=== PATIENT | male | born 1935 | race Caucasian/White ===

== ENCOUNTER → 2017-06-28 | Outpatient (CLI) | payer MEDICARE ==
--- NOTE | ~2017-06-28 | SLPPOC ---
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 Please see [employer] for details. Initial Level Goals Functional Limitation Reporting Swallowing G8996 - Swallowing functional limitation, current status at therapy episode outset and at reporting intervals Current Status: CK - At least 40 percent but less than 60 percent impaired, limited or restricted G8997 - Swallowing functional limitation, projected goal status, at therapy episode outset, at reporting intervals, and at discharge or to end reporting Goal Status: CK - At least 40 percent but less than 60 percent impaired, limited or restricted G8998 - Swallowing functional limitation, discharge status, at discharge from therapy or to end reporting Discharge Status: CK - At least 40 percent but less than 60 percent impaired, limited or restricted 06/28/2017 11:20:04 AM CICI MORIN Date/Time GAYLE Arora-GRAIN ELEVATOR AGENT Date I certify the need for these services furnished under this plan of treatment while under my care. State License #: [id number] CM:SLPPOC 1121 1121 [facility]
--- NOTE | ~2017-06-28 | SLPPN ---
[place], [place] BUSINESS PERFORMANCE ANALYST PROGRESS NOTE NAME: ERIC HOWARD UNIT #: [id number] ROOM: DOCTOR: CICI MORIN Speech Language Pathology Treatment Note Page 1 1 of Patient Name: ERIC HOWARD Date: 06/28/2017 11:20 AM : 1935 SOC Date: 06/28/2017 Provider: [facility] Provider #: [id number] Treating Clinician: GAYLE Arora-BUSINESS PERFORMANCE ANALYST Referring Physician: CICI MORIN Onset Date Description Code Primary Diagnosis: 06/20/2017 G25.9 Extrapyramidal and movement disorder, unspecified Time In: 10:00 AM Time Out: 11:00 AM BUSINESS PERFORMANCE ANALYST Interventions and CPT Codes Consisted of: CPT Code Modifiers Minutes Units MOTION FLUOROSCOPY/SWALLOW 15008 60 1 Total Minutes: 60 Total Timed Minutes: 0 Total Untimed Minutes: 60 Total Units: 1 Total Timed Units: 0 Total Untimed Units: 1 06/28/2017 11:21:03 AM GAYLE Arora-BUSINESS PERFORMANCE ANALYST Date/Time State License #: [id number] CM:SHAYY 1121 1121 [facility]
--- NOTE | ~2017-06-28 | SLPIE ---
[place], [place] DISTRIBUTION SUPERINTENDENT INITIAL EVALUATION NAME: ERIC HOWARD UNIT #: [id number] ROOM: DOCTOR: CICI MORIN Speech Language Pathology Initial Evaluation Page 1 1 of Patient Name: ERIC HOWARD Date: 06/28/2017 11:18 AM : 1935 SOC Date: 06/28/2017 Provider: [facility] Provider #: [id number] Treating Clinician: GAYLE Arora-DISTRIBUTION SUPERINTENDENT Referring Physician: CICI MORIN Patient Information Address: [address] [place] [address] Physician: CICI MORIN Physician #: City, [facility], Zip: [place], [place] [address] Occupation: Unknown # of Approved Visits: 0 Gender: Male Crematory Operator: ANA HOWARD Medicare #: [id number] Rehabilitation Information / History Onset Date Code Description Primary Diagnosis: 06/20/2017 G25.9 Extrapyramidal and movement disorder, unspecified Subjective Comments: Initial evaluation created to initiate the electronic medical record. Please see [employer] for details. Rehabilitation Information / History Clinical Findings Functional Goals Functional Limitation Reporting Swallowing G8996 - Swallowing functional limitation, current status at therapy episode outset and at reporting intervals Current Status: CK - At least 40 percent but less than 60 percent impaired, limited or restricted G8997 - Swallowing functional limitation, projected goal status, at therapy episode outset, at reporting intervals, and at discharge or to end reporting Goal Status: CK - At least 40 percent but less than 60 percent impaired, limited or restricted G8998 - Swallowing functional limitation, discharge status, at discharge from therapy or to end reporting Discharge Status: CK - At least 40 percent but less than 60 percent impaired, limited or restricted 06/28/2017 11:20:04 AM GAYLE Arora-DISTRIBUTION SUPERINTENDENT Date/Time [place], [place] DISTRIBUTION SUPERINTENDENT INITIAL EVALUATION NAME: ERIC HOWARD UNIT #: [id number] ROOM: DOCTOR: CICI MORIN [facility] License #: [id number] CM:CANDIE 20 112 [facility]
--- NOTE | ~2017-06-28 | PROC NOTE ---
[place], [place] PROCEDURE NOTE NAME: ERIC HOWARD UNIT #: [id number] ROOM: DOCTOR: SLY BELLAMY BIRTHDATE: [birth year] DOS: 06/28/2017 ORDERING PHYSICIAN: ____. RADIOLOGIST: Dr. Fermin. BACKGROUND INFORMATION: The patient is an 81-year-old male who was seen for modified barium swallow. This test was ordered to rule out aspiration. The patient underwent a recent clinical swallowing evaluation and presented with signs and symptoms of aspiration; therefore, instrumental exam was recommended. The patient is diagnosed with Parkinson's disease. He reported that he coughs and chokes with food and liquids. For today's assessment, he was alert and able to follow directions. He was receiving oxygen via nasal cannula and reported feeling mildly short of breath at this time. The patient reports that he consumes a regular diet and thin liquid at home. Oral peripheral examination revealed presence of upper denture with adequate fit reported. Lingual, labial, and buccal skills were within normal limits in terms of strength, range of motion, and coordination. The patient was able to volitionally swallow. His volitional cough was weak. Vocal intensity was weak as well due to Parkinson disease. The patient was alert and able to follow commands during the assessment. METHODS AND MATERIALS USED FOR THE EXAMINATION: The patient was positioned in the lateral plane and the exam was viewed under fluoroscopy. The patient was presented with a variety of consistencies to assess swallowing skills including applesauce mixed with barium presented in half teaspoon amounts, barium-coated banana presented in bite size piece and thin liquid barium given by cup. The patient took the cup independently and swallowed in single sip size amounts. ORAL PHASE: The patient achieved adequate labial fill around cup and spoon with no anterior loss. Bolus formation and transit were adequate. Mastication of soft solid was adequate. Tongue to palate contact was within normal limits. Tongue to posterior pharyngeal wall contact was moderately impaired with all consistencies. Velar functioning was within normal limits with no nasal regurgitation. PHARYNGEAL PHASE: The pharyngeal swallow occurred within a timely manner. hyolaryngeal elevation was reduced with all consistencies. Residue in the vallecula was observed with puree and soft solid and eventually residue was observed in the pyriform as well. The patient was not aware of the residue and made no attempt to independently clear it. Strategies were used in an attempt to clear residue. Strategies were somewhat helpful, but none of these were able to completely clear his pharynx. Strategies attempted included liquid wash, chin tuck and hard swallow. When patient consumed thin liquid, silent aspiration during the swallow occurred due to reduced laryngeal excursion and epiglottic function. Chin tuck maneuver was attempted and successful in protecting the airway with no penetration or aspiration occurring. There was no penetration or aspiration with any other consistency given. ESOPHAGEAL PHASE: This phase of the swallow was not formally assessed during [place], [place] PROCEDURE NOTE NAME: ERIC HOWARD UNIT #: [id number] ROOM: DOCTOR: SLY BELLAMY BIRTHDATE: [birth year] this exam. IMPRESSIONS AND RECOMMENDATIONS: Based upon assessment results, this 81-year-old patient presents with a moderate oropharyngeal dysphagia, characterized by reduced tongue to posterior pharyngeal wall contraction resulting in residue in the vallecula, which patient was not aware of. Strategies were attempted to clear the residue and were somewhat helpful, but did not completely clear the pharynx. The patient displayed reduced hyolaryngeal elevation was silent aspiration occurring during the swallow with thin liquid. Aspiration was eliminated with chin tuck maneuver. Recommend the patient receive a soft diet and thin liquids. Recommend safe swallow strategies including upright positioning for meals. Chin tuck with all consistencies, alternating liquid and solid and double swallows to help clear the pharynx. Recommend intensive dysphagia therapy to improve safety of the swallow through strengthening exercises, strategies and education. Results and recommendations of the assessment were shared with the patient and spouse and a written copy of recommendations was provided. Thank you very much for this referral. Should you have any questions regarding this patient, please contact the speech pathologist at [phone]. SLY BELLAMY CM:PROCNOTE:PROCEDURE NOTE 1400 [id number] SLY BELLAMY
== END | disposition home or self-care (01) ==
LOC: RAD/SH 10:00
DX: G25.9 Extrapyramidal and movement disorder, unspecified (principal); G20 Parkinson's disease; R13.10 Dysphagia, unspecified; R09.89 Other specified symptoms and signs involving the circulatory and respiratory systems